=== PATIENT | female | born 1975 | race Caucasian/White ===

== ENCOUNTER 2018-09-17 17:02 | Emergency (ER) | END 2018-09-17 20:35 | disposition home or self-care (01) ==

== ENCOUNTER 2019-08-15 15:10 | Emergency (ER) | payer MEDICAID ==
[~2019-08-15] VITALS: Ht 147.3 cm; Wt 56.3 kg
[~2019-08-15 15:10] MED LIST: ACET1TAB40 PO; CYCL10TA7 PO; IBUP-1542 PO
[2019-08-15 15:17] VITALS: BP 137/71; PULSE 66; RESP 18; Ht 147.3 cm; Wt 56.3 kg
== END 2019-08-15 16:36 | disposition home or self-care (01) ==
LOC: E/R 15:10
DX: M54.2 Cervicalgia (principal); R07.81 Pleurodynia
CPT/HCPCS: 71045; 72040; 93005; Z7502